=== PATIENT | male | born 1955 | race Caucasian/White ===

== ENCOUNTER → 2020-02-16 | Outpatient (CLI) | payer MEDICARE, OTHER ==
[~2020-02-16] MED LIST: AMLODIPINE BESYL5 MG PO; ANTIVERT 25MG T25 MG PO; ASPIRIN EC81 MG PO; ATORVASTATIN CA40 MG PO; AUGMENTIN 500-1 EACH PO; CITALOPRAM HBR40 MG PO; CLOPIDOGREL75 MG PO; ELAVIL 10 MG TA10 MG PO; FISH OIL EC 1,1 EACH PO; LEVOFLOXACIN500 MG PO; LEVOTHYROXINE88 MCG PO; LORTAB 7.5-3251 EACH PO; LOSARTAN POTAS100 MG PO; NORVASC 5 MG TAB5 MG PO; NOVOLIN R100 UNIT/1 SQ; PROTONIX 40 MG40 M1 PO; XANAX0.5 MG PO
== END ==
LOC: KOH-I 12:26
DX: I73.9 Peripheral vascular disease, unspecified (principal)
CPT/HCPCS: 93925

== ENCOUNTER 2020-03-02 14:07 | Emergency (ER) | payer OTHER, MEDICARE ==
[2020-03-02 16:15] LABS: HEMOGLOBIN 15.4 gm/dl (14.0-17.5); RED BLOOD COUNT 5.13 M/UL (4.20-5.50); WHITE BLOOD COUNT 7.5 K/UL (4.5-11.0)
[2020-03-02 16:36] LABS: BUN/CREATININE RATIO 26 (0-10)
== END 2020-03-02 19:07 | disposition home or self-care (01) ==
LOC: ER1 14:07
PROVIDERS: Emergency Medicine
DX: S01.01XA Laceration without foreign body of scalp, initial encounter (principal); S30.1XXA Contusion of abdominal wall, initial encounter; S70.00XA Contusion of unspecified hip, initial encounter; I10 Essential (primary) hypertension; E11.9 Type 2 diabetes mellitus without complications; V43.52XA Car driver injured in collision with other type car in traffic accident, initial encounter; W22.11XA Striking against or struck by driver side automobile airbag, initial encounter; Y92.410 Unspecified street and highway as the place of occurrence of the external cause
CPT/HCPCS: 12004; 70450; 71045; 72125; 72170; 80053; 85025; 99284; Q9967

== ENCOUNTER → 2020-11-09 | Outpatient (CLI) | payer MEDICARE ==
[2020-11-09 12:09] LABS: RED BLOOD COUNT 5.22 M/UL (4.20-5.50); WHITE BLOOD COUNT 5.4 K/UL (4.5-11.0)
[2020-11-10 07:07] LABS: CREATININE, URINE 130.7 mg/dL (Not Estab.)
== END ==
LOC: LAB 11:01
PROVIDERS: Internal Medicine Geriatric Medicine
DX: E78.2 Mixed hyperlipidemia (principal); E11.65 Type 2 diabetes mellitus with hyperglycemia; E03.8 Other specified hypothyroidism; Z79.4 Long term (current) use of insulin
CPT/HCPCS: 80053; 80061; 82043; 82570; 83036; 84443; 85025

== ENCOUNTER 2020-11-19 17:03 | Observation (INO) | payer MEDICARE ==
[~2020-11-19] VITALS: Ht 180.3 cm; Wt 93.2 kg
[~2020-11-19 17:03] MED LIST changes: -LEVOTHYROXINE88 MCG PO; +SYNTHROID100 MCG PO
[2020-11-19 19:21] LABS: HEMOGLOBIN 14.4 gm/dl (14.0-17.5); RED BLOOD COUNT 4.74 M/UL (4.20-5.50); WHITE BLOOD COUNT 5.2 K/UL (4.5-11.0)
[2020-11-19 19:42] LABS: BUN/CREATININE RATIO 15 (0-10)
[2020-11-20] MEDS ORDERED: ALPRAZOLAM0.5 MG PO (09:26)
[2020-11-20] MEDS ORDERED: AMLODIPINE BESYL5 MG PO (09:29)
[2020-11-20] MEDS ORDERED: HYDROCODON-ACE1 EAC2 PO (09:30)
[2020-11-20] MEDS ORDERED: NOVOLIN 70100 UNIT/1 SC (09:32)
[2020-11-20] MEDS ORDERED: NOVOLIN R100 UNIT/1 SC (09:33)
[2020-11-20] MEDS ORDERED: HUMULIN 70100 UNIT/1 SC (09:35)
[2020-11-20] MEDS ORDERED: COSOPT OPTH SOL10 ML EYEBOTH (09:35)
[2020-11-20] MEDS ORDERED: LOSARTAN POTAS100 MG PO (09:36)
[2020-11-21 03:09] LABS: HEMOGLOBIN 14.1 gm/dl (14.0-17.5); RED BLOOD COUNT 4.68 M/UL (4.20-5.50)
[2020-11-21] MEDS ORDERED: KLOR-CON 1010 MEQ PO (10:18)
[2020-11-21] MEDS ORDERED: ELIQUIS 5 MG TAB5 MG PO (10:20)
[2020-11-21] MEDS ORDERED: ELIQUIS5 MG PO (10:20)
[2020-11-21] MEDS ORDERED: SYNTHROID100 MCG PO (11:32)
== END 2020-11-21 13:15 | disposition home or self-care (01) ==
LOC: ER1 17:03 → CDU 23:11 → PROG CARE 11-20 08:55
PROVIDERS: Physician Assistant; ADMIT Internal Medicine
DX: I26.99 Other pulmonary embolism without acute cor pulmonale (principal); J90 Pleural effusion, not elsewhere classified; D73.4 Cyst of spleen; I82.431 Acute embolism and thrombosis of right popliteal vein; I82.4Z2 Acute embolism and thrombosis of unspecified deep veins of left distal lower extremity; I25.10 Atherosclerotic heart disease of native coronary artery without angina pectoris; I11.9 Hypertensive heart disease without heart failure; F41.9 Anxiety disorder, unspecified; F32.A Depression, unspecified; E03.9 Hypothyroidism, unspecified; E78.5 Hyperlipidemia, unspecified; K21.9 Gastro-esophageal reflux disease without esophagitis; G89.29 Other chronic pain; F11.20 Opioid dependence, uncomplicated; E87.6 Hypokalemia; E11.69 Type 2 diabetes mellitus with other specified complication; M86.8X7 Other osteomyelitis, ankle and foot; E11.51 Type 2 diabetes mellitus with diabetic peripheral angiopathy without gangrene; E11.621 Type 2 diabetes mellitus with foot ulcer; L97.519 Non-pressure chronic ulcer of other part of right foot with unspecified severity; E66.9 Obesity, unspecified; Z68.28 Body mass index [BMI] 28.0-28.9, adult; Z95.1 Presence of aortocoronary bypass graft; Z79.4 Long term (current) use of insulin; Z79.82 Long term (current) use of aspirin; Z79.02 Long term (current) use of antithrombotics/antiplatelets; Z79.899 Other long term (current) drug therapy
CPT/HCPCS: ECHO; 36415; 71260; 80053; 82550; 82553; 82962; 83874; 84439; 84443; 84484; 85025; 85027; 85610; 85730; 93306; 93970; 96374; 96375; 99285; G0378; J1644; J1885; Q9967

== ENCOUNTER → 2021-04-24 | Outpatient (CLI) | payer OTHER ==
[~2021-04-24] MED LIST changes: +ALPRAZOLAM0.5 MG PO; +COSOPT OPTH SOL10 ML EYEBOTH; +ELIQUIS 5 MG TAB5 MG PO; +ELIQUIS5 MG PO; +HUMULIN 70100 UNIT/1 SC; +HYDROCODON-ACE1 EAC2 PO; +KLOR-CON 1010 MEQ PO; +NOVOLIN 70100 UNIT/1 SC; +NOVOLIN R100 UNIT/1 SC
[2021-04-24 13:50] LABS: HEMOGLOBIN 14.8 gm/dl (14.0-17.5); RED BLOOD COUNT 4.89 M/UL (4.20-5.50)
[2021-04-24 14:24] LABS: BUN/CREATININE RATIO 14 (0-10)
[2021-04-25 11:15] LABS: CREATININE, URINE 99.1 mg/dL (Not Estab.)
== END ==
LOC: LAB 13:19
PROVIDERS: Internal Medicine Geriatric Medicine
DX: E78.2 Mixed hyperlipidemia (principal); E11.65 Type 2 diabetes mellitus with hyperglycemia; Z79.4 Long term (current) use of insulin; E03.8 Other specified hypothyroidism
CPT/HCPCS: 36415; 80053; 80061; 82043; 82570; 83036; 84443; 85025

== ENCOUNTER → 2021-05-19 | Outpatient (CLI) | payer OTHER | LOC: EXRD 14:54 | DX: I26.99 Other pulmonary embolism without acute cor pulmonale (principal); R06.02 Shortness of breath | CPT/HCPCS: 71046; 94060; 94729 ==

== ENCOUNTER 2021-10-10 04:25 | Emergency (ER) | payer MEDICARE ==
[2021-10-10 05:30] LABS: HEMOGLOBIN 15.6 gm/dl (14.0-17.5); RED BLOOD COUNT 5.19 M/UL (4.20-5.50); WHITE BLOOD COUNT 8.6 K/UL (4.5-11.0)
[2021-10-11] MEDS ORDERED: AMOX TR-K CLV1 EAC4 PO (20:15)
== END 2021-10-10 08:28 | disposition home or self-care (01) ==
LOC: ER1 04:25
PROVIDERS: Student in an Organized Health Care Education/Training Program
DX: S22.31XA Fracture of one rib, right side, initial encounter for closed fracture (principal); S32.019A Unspecified fracture of first lumbar vertebra, initial encounter for closed fracture; S32.029A Unspecified fracture of second lumbar vertebra, initial encounter for closed fracture; S30.1XXA Contusion of abdominal wall, initial encounter; R91.1 Solitary pulmonary nodule; I11.9 Hypertensive heart disease without heart failure; Z86.73 Personal history of transient ischemic attack (TIA), and cerebral infarction without residual deficits; E11.9 Type 2 diabetes mellitus without complications; Z95.1 Presence of aortocoronary bypass graft; W01.0XXA Fall on same level from slipping, tripping and stumbling without subsequent striking against object, initial encounter; Y92.009 Unspecified place in unspecified non-institutional (private) residence as the place of occurrence of the external cause
CPT/HCPCS: 70450; 71260; 72125; 80053; 82550; 82553; 84484; 85025; 99284; Q9967

== ENCOUNTER 2021-10-11 14:52 | Emergency (ER) | payer MEDICARE ==
[2021-10-11 16:17] LABS: HEMOGLOBIN 15.2 gm/dl (14.0-17.5); RED BLOOD COUNT 5.02 M/UL (4.20-5.50); WHITE BLOOD COUNT 7.1 K/UL (4.5-11.0)
[2021-10-11] MEDS ORDERED: AMOX TR-K CLV1 EAC4 PO (20:15)
== END 2021-10-11 20:24 | disposition home or self-care (01) ==
LOC: ER1 14:52
PROVIDERS: Physician Assistant
DX: U07.1 COVID-19 (principal); N39.0 Urinary tract infection, site not specified; I13.10 Hypertensive heart and chronic kidney disease without heart failure, with stage 1 through stage 4 chronic kidney disease, or unspecified chronic kidney disease; E11.22 Type 2 diabetes mellitus with diabetic chronic kidney disease; N18.9 Chronic kidney disease, unspecified; E03.9 Hypothyroidism, unspecified; Z86.711 Personal history of pulmonary embolism; Z79.02 Long term (current) use of antithrombotics/antiplatelets; Z95.1 Presence of aortocoronary bypass graft
CPT/HCPCS: 70450; 71045; 80053; 81001; 82550; 82553; 84484; 85025; 87086; 96374; 99284; J1100; U0002

== ENCOUNTER → 2021-10-29 | Outpatient (CLI) | payer MEDICARE ==
[~2021-10-29] MED LIST changes: +AMOX TR-K CLV1 EAC4 PO
[2021-10-29 13:02] LABS: HEMOGLOBIN 14.8 gm/dl (14.0-17.5); RED BLOOD COUNT 4.73 M/UL (4.20-5.50); WHITE BLOOD COUNT 7.5 K/UL (4.5-11.0)
[2021-10-29 13:39] LABS: BUN/CREATININE RATIO 14 (0-10)
[2021-10-30 11:15] LABS: CREATININE, URINE 122.8 mg/dL (Not Estab.)
== END ==
LOC: LAB 12:11
PROVIDERS: Internal Medicine Endocrinology, Diabetes & Metabolism
DX: E11.65 Type 2 diabetes mellitus with hyperglycemia (principal); E11.51 Type 2 diabetes mellitus with diabetic peripheral angiopathy without gangrene; R06.00 Dyspnea, unspecified
CPT/HCPCS: 36415; 80053; 80061; 82043; 82570; 83880; 84439; 84443; 85027; 85379